=== PATIENT | male | born 2000 | race Two or more races ===

== ENCOUNTER 2021-02-23 14:01 | Emergency (ER) | payer OTHER ==
[2021-02-23 15:50] VITALS: BP 120/74
[2021-02-23 15:51] LABS: COVID AG,FIA SOURCE NASOPHARYNGEAL
== END 2021-02-23 16:50 | disposition home or self-care (01) ==
LOC: EMS 14:01
DX: R50.9 Fever, unspecified (principal); Z20.822 Contact with and (suspected) exposure to COVID-19
CPT/HCPCS: 87426; 99283; U0003